=== PATIENT | male | born 1930 | race Caucasian/White ===

== ENCOUNTER 2020-02-18 06:09 | Day surgery (SDC) | payer MEDICARE ==
[2020-02-15 16:30] LABS: ALBUMIN 3.6 g/dL (3.4-5.0); ANION GAP 5 mmol/L (5-15); CALCIUM 10.4 mg/dL (8.5-10.1); CHLORIDE 103 mmol/L (98-107)
[2020-02-15 16:33] LABS: ALANINE AMINOTRANSFERASE 203 U/L (12-78); ALKALINE PHOSPHATASE 525 U/L (45-117); BILIRUBIN,TOTAL 0.9 mg/dL (0.2-1.0); CREATININE 0.81 mg/dL (0.7-1.3); TOTAL PROTEIN 7.5 g/dL (6.4-8.2)
[~2020-02-18] VITALS: Ht 182.9 cm; Wt 75.8 kg
[~2020-02-18 06:09] MED LIST: ASCO250T12 PO; BACI1TAB3 PO; CHOL10003 PO; ENAL10TA9 PO; GLUC-149 PO; OMEP-110 PO; SIMV10TA18 PO; STOOL SOFTENER PO; [UNRECOGNIZED DRUG - OTHER] PO
[2020-02-18 06:49] VITALS: BP 120/73
[2020-02-18] MEDS ORDERED: LACTATED RINGERS 1,000 ML IV SCH (07:00)
[2020-02-18] MEDS ORDERED: CHLORHEXIDINE 15 ML UDC MM ONE (07:00)
[2020-02-18] MEDS ORDERED: PROPOFOL 10 MG/ML, 20ML ONE ×2 (07:04→07:38)
== END 2020-02-18 10:35 | disposition home or self-care (01) ==
LOC: OUT 06:09
PROVIDERS: ATTEND Internal Medicine Gastroenterology
DX: K86.89 Other specified diseases of pancreas (principal); T85.520A Displacement of bile duct prosthesis, initial encounter; K22.70 Barrett's esophagus without dysplasia; K29.80 Duodenitis without bleeding; K83.1 Obstruction of bile duct; K31.7 Polyp of stomach and duodenum; K44.9 Diaphragmatic hernia without obstruction or gangrene; K21.9 Gastro-esophageal reflux disease without esophagitis; I10 Essential (primary) hypertension; E78.5 Hyperlipidemia, unspecified; Z20.822 Contact with and (suspected) exposure to COVID-19; Z79.899 Other long term (current) drug therapy; Y83.8 Other surgical procedures as the cause of abnormal reaction of the patient, or of later complication, without mention of misadventure at the time of the procedure
CPT/HCPCS: 36415; 43242; 80053; 88172; 88173; 88305; 88307; 93005; J2704; J7120; U0003